=== PATIENT | female | born 1990 | race Caucasian/White ===

== ENCOUNTER 2018-11-29 03:38 | Emergency (ER) | payer OTHER ==
[~2018-11-29] VITALS: Ht 165.1 cm; Wt 69.4 kg
[2018-11-29] MEDS ORDERED: LORAZEPAM 1 MG TABLET ONE ×2 (04:00→04:55)
[2018-11-29] MEDS ORDERED: LORAZEPAM 1 MG TABLET PO ONE ×2 (04:00→05:00)
--- NOTE | 2018-11-29 04:00 | NUR ---
PT BIBRA FROM [facility], PER RA PT WAS KICKED OUT FOR "BIZZARE BEHAVIOR", DOES NOT SPECIFY. PT CURRENTLY DOES NOT HAVE ANY COMPLAINTS. DENIES SI, HI, A/V HALLUCINATIONS. AAOX4. RESPIRATIONS EVEN AND UNLABORED. SKIN WARM AND INTACT. NO ACUTE DISTRESS NOTED AT THIS TIME. PT ABLE TO AMBULATE WITH STEADY GAIT. WILL CONTINUE TO MONITOR
--- NOTE | 2018-11-29 04:08 | NUR ---
SURGERY SPECIALIST AT BEDSIDE FOR BLOOD DRAW
[2018-11-29 04:12] LABS: BASOPHILS % (AUTO) 0.3 % (0.0-2.0); EOSINOPHILS % (AUTO) 0.6 % (0.0-6.0); HEMATOCRIT 40 % (33-45); HEMOGLOBIN 13.6 g/dL (11.5-14.8); LYMPHOCYTES # (AUTO) 2.9 /CMM (0.8-4.8); LYMPHOCYTES % (AUTO) 34.6 % (20.0-44.0); MEAN CORPUSCULAR HGB CONC 34 g/dl (31.0-36.0); MEAN CORPUSCULAR VOLUME 86 fL (82-100); MONOCYTES # (AUTO) 0.6 /CMM (0.1-1.30); MONOCYTES % (AUTO) 7.6 % (2.0-12.0); NEUTROPHILS # (AUTO) 4.8 /CMM (1.8-8.9); NEUTROPHILS % (AUTO) 56.9 % (43.0-81.0); PLATELET COUNT (AUTO) 284 /CMM (150-450); WHITE BLOOD COUNT (AUTO) 8.4 K/uL (4.3-11.0)
[2018-11-29 04:26] LABS: CALCIUM, SERUM 9.3 mg/dL (8.5-10.1); CARBON DIOXIDE 24 mmol/L (21-32); CHLORIDE 105 mmol/L (98-107); CREATININE 0.8 mg/dL (0.6-1.3); GLUCOSE 109 mg/dL (74-106); POTASSIUM 3.7 mmol/L (3.5-5.1); SODIUM SERUM 143 mmol/L (136-145); UREA NITROGEN, BLOOD 15 mg/dL (7-18)
--- NOTE | 2018-11-29 04:31 | NUR ---
PT UNABLE TO PROVIDE URINE SAMPLE AT THIS TIME, AWARE
[2018-11-29 04:32] LABS: ALANINE AMINOTRANSFERASE 33 U/L (12-78); ALBUMIN 4.1 g/dL (3.4-5.0); ALCOHOL, BLOOD < 3 mg/dL (0-0); ALKALINE PHOSPHATASE 63 U/L (46-116); ASPARTATE AMINOTRANSFERASE 19 U/L (15-37); BILIRUBIN,DIRECT 0.1 mg/dL (0.0-0.2); BILIRUBIN,TOTAL 0.5 mg/dL (0.2-1.0); SALICYLATE 2.1 mg/dL (2.8-20.0); TOTAL PROTEIN, SERUM 7.8 g/dL (6.4-8.2)
[2018-11-29 04:33] LABS: ACETAMINOPHEN 0 ug/ml (10-30)
--- NOTE | 2018-11-29 04:40 | NUR ---
PT BECOMING MORE RESTLESS, WANDERING AROUND ER AND BEING TOLD MULTIPLE TIMES TO RETURN TO BED. MD AWARE.
[2018-11-29] MEDS ORDERED: HALOPERIDOL 5 MG TABLET ONE (04:55)
[2018-11-29] MEDS ORDERED: HALOPERIDOL 1 MG TABLET PO ONE (05:00)
--- NOTE | 2018-11-29 05:48 | NUR ---
URINE COLLECTED, CALLED LAB FOR MEDICAL RECORDS SUPERVISOR
[2018-11-29 06:12] LABS: APPEARANCE,URINE CLEAR (CLEAR); BILIRUBIN,URINE NEGATIVE (NEGATIVE); BLOOD, URINE NEGATIVE Ery/uL (NEGATIVE); COLOR,URINE YELLOW (YELLOW); KETONES,URINE TRACE (NEGATIVE); LEUKOCYTE ESTERASE ,URINE NEGATIVE (NEGATIVE); NITRITE, URINE NEGATIVE (NEGATIVE); PH,URINE 6.5 (5.0-8.0); PROTEIN,URINE NEGATIVE (NEGATIVE); UGLUCOSE NEGATIVE (NEGATIVE); UROBILINOGEN,URINE 0.2 EU/dL (0.2)
--- NOTE | 2018-11-29 06:27 | NUR ---
PT RESTLESS, CONSTANTLY WANDERING AROUND ER. NEEDS TO BE TOLD MULTIPLE TIMES TO RETURN TO ROOM. PT APPEARS CONFUSED ON SURROUNDINGS. WILL CONTINUE TO MONITOR
[2018-11-29 06:30] LABS: BACTERIA,URINE Few /HPF (None Seen); RBC,URINE NONE SEEN /HPF (0-2); SQUAMOUS EPITHELIAL CELL,UR Few /HPF (None Seen)
[2018-11-29] MEDS ORDERED: OLANZAPINE 10 MG VIAL IM ONE ×2 (06:32→07:00)
--- NOTE | 2018-11-29 07:28 | NUR ---
ONE TO ONE SITTER BEDSIDE WITH PT. REPORT GIVEN TO CARLOS A DIALLO FOR TAYO
--- NOTE | 2018-11-29 07:39 | NUR ---
Assume care. Asleep, respirations even and unlabored. No obvious distress. Sitter at bedside. VS
--- NOTE | 2018-11-29 14:00 | NUR ---
PET Team here to evaluate pt. Pt remains groggy/sleepy rousable on verbal stimulus but drifts easily to sleep. Mumbles-speech incomprehensible. AUDIT MANAGER/PET will clear when pt able to hold conversatopn
--- NOTE | 2018-11-29 19:00 | NUR ---
NO obvious distress Status quo. VSS Nurse Knowledge Exchange w/CARLOS A Combs
--- NOTE | 2018-11-29 20:10 | NUR ---
PER ELEAZAR, RN PATIENT IS CLEAR AND CAN BE DISCHARGED WHEN READY.
--- NOTE | 2018-11-30 03:21 | NUR ---
PT RESTING COMFORTABLY IN BED. VITAL SIGNS STABLE. STILL ON CONTINUOUS MONITOR, WILL CONTINUE TO MONITOR
--- NOTE | 2018-11-30 06:00 | NUR ---
PT AAOX4. VITAL SIGNS STABLE. DENIES SI, HI, A/V HALLUCINATIONS AT THIS TIME. PT ABLE TO AMBULATE WITH STEADY GAIT.
--- NOTE | 2018-11-30 06:17 | NUR ---
Patient discharged to home in stable condition. Written and verbal after care instructions given. Patient verbalizes understanding of instruction. ambulatory with a steady gait
[2018-11-30 06:34] VITALS: BP 115/80
== END 2018-11-30 06:35 | disposition home or self-care (01) ==
LOC: ER 03:42
DX: F29 Unspecified psychosis not due to a substance or known physiological condition (principal); R41.82 Altered mental status, unspecified
CPT/HCPCS: 36415; 71045; 80048; 80076; 80305; 80307; 80329; 81001; 84702; 85025; 85730; 96372; 99284; A4606; G0480; J3490; 81000-TC